=== PATIENT | female | born 1945 | race African-American/Black ===

== ENCOUNTER 2018-08-14 15:02 | Outpatient (CLI) | payer MEDICARE, MEDICAID ==
[~2018-08-14] VITALS: Ht 157.5 cm; Wt 81.2 kg
[2018-08-14] MEDS ORDERED: PLAVIX75 MG ORAL (15:57)
[2018-08-14] MEDS ORDERED: HUMALOG 75/255 UNIT1 SUBQ (15:57)
[2018-08-14] MEDS ORDERED: TRAMADOL HCL50 MG ORAL (15:57)
[2018-08-14] MEDS ORDERED: METOPROLOL TART50 M1 ORAL (15:57)
[2018-08-14] MEDS ORDERED: ASPIRIN EC81 MG ORAL (15:57)
[2018-08-14] MEDS ORDERED: LANTUS SOL100 UNIT/1 SUBQ (15:57)
[2018-08-14] MEDS ORDERED: SYMBICORT 16010.2 G1 IH (15:57)
[2018-08-14] MEDS ORDERED: PROAIR HFA8.5 GM INH (15:57)
[2018-08-14] MEDS ORDERED: GABAPENTIN300 MG ORAL (15:57)
[2018-08-14 16:03] VITALS: BP 132/54
--- NOTE | 2018-08-26 21:30 | Consultation ---
DATE OF CONSULTATION: 08/14/2018 CONSULTING PHYSICIAN: Mulugeta Conn M.D. REFERRING PHYSICIAN: Solis Calixto M.D. CHIEF COMPLAINT: Abdominal pain, constipation, and bloating. HISTORY OF PRESENT ILLNESS: This is a very pleasant 73-year-old female with numerous medical problems, which I will dictate in a second, was referred to us by Dr. Calixto for evaluation for constipation for evaluation for GI procedures. PAST MEDICAL HISTORY: 1. Back pain, chronic. 2. COPD. 3. Arthritis. 4. Diabetes. 5. Coronary artery disease and [place], followed by Dr. Centeno, developer programmer analyst. PAST SURGICAL HISTORY: 1. History of hysterectomy. 2. Cardiac catheterization and stent placement. MEDICATIONS: Please see medication reconciliation list that included aspirin and Plavix. FAMILY HISTORY: Father with diabetes. Mother with coronary artery disease. SOCIAL HISTORY: The patient drinks socially. Used to chew and smoke. Denies any drug use. ALLERGIES: No known drug allergies. REVIEW OF SYSTEMS: A 10-point review of systems was performed and pertinent positives in HPI. PHYSICAL EXAMINATION: VITAL SIGNS: Temperature 97.3, blood pressure is 132/54, pulse 64, respirations 20. HEENT: Normocephalic and atraumatic. No scleral icterus. NECK: Supple. No obvious evidence of lymphadenopathy. CARDIOVASCULAR: Regular rhythm. Plus S1 and S2. There is a soft murmur in the left sternal border. LUNGS: Decreased breath sounds bilateral bases on supine exam. ABDOMEN: Soft and nontender. No rebound. No guarding. No peritoneal sign. EXTREMITIES: No cyanosis. No clubbing. No edema. LABORATORY DATA: White count is 9, hemoglobin 13, hematocrit 42, platelet of 186,000. ASSESSMENT AND PLAN: This is a 73-year-old female with chronic constipation, chronic bloating, need for endoscopy and colonoscopy. Plan will be to start on Xifaxan 550 t.i.d. for 14 days for the bloating to rule out small-bowel bacterial overgrowth. The patient also was given a prescription for for chronic constipation. I left a message for the developer programmer analyst, Dr. Centeno, to see if the patient can be taken off of aspirin and Plavix for GI procedures pending response. The patient to come back in 2 weeks followup to see how she responded to medication and we will continue to call in Dr. Centeno to get clearance for GI procedures. I want to thank Dr. Calixto for this kind referral. Mulugeta Conn M.D. DR: Mirela JOB#: [id number] CC: Solis Calixto M.D.; Fax#: [phone]
== END 2018-08-14 17:02 | disposition home or self-care (01) ==
LOC: PAN 15:02
DX: K59.09 Other constipation (principal); R14.0 Abdominal distension (gaseous); R10.9 Unspecified abdominal pain; J44.9 Chronic obstructive pulmonary disease, unspecified; M54.9 Dorsalgia, unspecified; G89.29 Other chronic pain; M19.90 Unspecified osteoarthritis, unspecified site; E11.9 Type 2 diabetes mellitus without complications; I25.10 Atherosclerotic heart disease of native coronary artery without angina pectoris; I25.2 Old myocardial infarction; Z90.710 Acquired absence of both cervix and uterus
CPT/HCPCS: 99202

== ENCOUNTER 2018-08-28 14:20 | Outpatient (CLI) | payer MEDICARE, MEDICAID ==
[~2018-08-28 14:20] MED LIST: ASPIRIN EC81 MG ORAL; GABAPENTIN300 MG ORAL; HUMALOG 75/255 UNIT1 SUBQ; LANTUS SOL100 UNIT/1 SUBQ; METOPROLOL TART50 M1 ORAL; PLAVIX75 MG ORAL; PROAIR HFA8.5 GM INH; SYMBICORT 16010.2 G1 IH; TRAMADOL HCL50 MG ORAL
--- NOTE | 2018-08-28 14:55 | General Progress Note ---
Assessment/Plan Problem List: (1) Constipation ICD Codes: K59.00 - Constipation, unspecified SNOMED: 23663087 (2) SIBO (3) CAD (coronary artery disease) ICD Codes: I25.10 - Atherosclerotic heart disease of [place] coronary artery without angina pectoris SNOMED: 41014407 (4) DM (5) COPD (chronic obstructive pulmonary disease) ICD Codes: J44.9 - Chronic obstructive pulmonary disease, unspecified SNOMED: 05199515 Assessment/Plan s/p xifaxan plan EGd and colonoscopy hold plavix for 72 hours prior to the procedure Subjective ROS Limited/Unobtainable: Yes Allergies: Coded Allergies: No Known Allergies (Unverified , 08/14/18) Objective General Appearance: alert EENT: PERRL/EOMI Neck: supple Cardiovascular: normal rate Respiratory/Chest: decreased breath sounds Abdomen: normal bowel sounds, non tender, soft Extremities: non-tender Mulugeta Conn MD Aug 28, 2018 14:55
[2018-08-28 16:53] VITALS: BP 140/54
== END 2018-08-28 16:20 | disposition home or self-care (01) ==
LOC: PAN 14:20
DX: K59.00 Constipation, unspecified (principal); I25.10 Atherosclerotic heart disease of native coronary artery without angina pectoris; E11.9 Type 2 diabetes mellitus without complications; J44.9 Chronic obstructive pulmonary disease, unspecified; K56.609 Unspecified intestinal obstruction, unspecified as to partial versus complete obstruction
CPT/HCPCS: G0463

== ENCOUNTER 2018-10-30 13:18 | Outpatient (CLI) | payer MEDICARE, MEDICAID ==
[~2018-10-30 13:18] MED LIST changes: +AMLODIPINE BESYL5 MG ORAL; +LIPITOR80 MG ORAL; +ZANTAC150 MG ORAL
--- NOTE | 2018-10-30 13:41 | General Progress Note ---
Assessment/Plan Problem List: (1) Multiple polyps of sigmoid colon ICD Codes: D12.5 - Benign neoplasm of sigmoid colon SNOMED: 098052400 (2) multiple colon polyps (3) Diverticulosis ICD Codes: K57.90 - Diverticulosis of intestine, part unspecified, without perforation or abscess without bleeding SNOMED: 745295532 (4) Gastritis ICD Codes: K29.70 - Gastritis, unspecified, without bleeding SNOMED: 2148422 (5) SIBO (6) DM (7) CAD (coronary artery disease) ICD Codes: I25.10 - Atherosclerotic heart disease of [place] coronary artery without angina pectoris SNOMED: 89456626 (8) Constipation ICD Codes: K59.00 - Constipation, unspecified SNOMED: 34558280 (9) COPD (chronic obstructive pulmonary disease) ICD Codes: J44.9 - Chronic obstructive pulmonary disease, unspecified SNOMED: 52086912 Assessment/Plan: start Relistor repeat colon in 3 years Subjective ROS Limited/Unobtainable: Yes Allergies: Coded Allergies: No Known Allergies (Unverified , 09/17/18) Objective General Appearance: alert EENT: normal ENT inspection Neck: supple Cardiovascular: regular rhythm Respiratory/Chest: lungs clear Abdomen: normal bowel sounds, non tender, soft Extremities: non-tender Mulugeta Conn MD October 30, 2018 13:41
[2018-10-30 14:24] VITALS: BP 135/82
== END 2018-10-30 15:47 | disposition home or self-care (01) ==
LOC: PAN 13:18
DX: D12.5 Benign neoplasm of sigmoid colon (principal); Z86.010 Personal history of colon polyps; K57.90 Diverticulosis of intestine, part unspecified, without perforation or abscess without bleeding; K29.70 Gastritis, unspecified, without bleeding; E11.9 Type 2 diabetes mellitus without complications; I25.10 Atherosclerotic heart disease of native coronary artery without angina pectoris; K59.00 Constipation, unspecified; J44.9 Chronic obstructive pulmonary disease, unspecified; K56.609 Unspecified intestinal obstruction, unspecified as to partial versus complete obstruction
CPT/HCPCS: 99212